=== PATIENT | male | born 1975 | race Caucasian/White ===

== ENCOUNTER → 2021-10-14 | Emergency (ER) | payer OTHER ==
[~2021-10-14] MED LIST: AMOX TR/POT CLAV 875MG/125MG TABLETS (FP) ONE; AMOX TR/POT CLAV 875MG/125MG TABLETS (FP) PO ONE
[2021-10-15 00:02] VITALS: BP 129/94; PULSE 57; TEMP 97.7; BMI 26.9
== END | disposition home or self-care (01) ==
LOC: FER 23:39
DX: J34.89 Other specified disorders of nose and nasal sinuses (principal)
CPT/HCPCS: 99283-25